=== PATIENT | male | born 1985 | race Caucasian/White ===

== ENCOUNTER 2024-03-31 08:27 | Outpatient (CLI) | payer BC | END 2024-03-31 08:28 | disposition home or self-care (01) | LOC: RAD 08:27 | PROVIDERS: ATTEND Internal Medicine Critical Care Medicine | DX: R06.00 Dyspnea, unspecified (principal) | CPT/HCPCS: 71046 ==

== ENCOUNTER 2025-09-12 14:13 | Outpatient (CLI) | payer BC | END 2025-09-12 14:14 | disposition home or self-care (01) | LOC: SCSRAD 14:13 | PROVIDERS: ATTEND Physician Assistant | DX: M25.532 Pain in left wrist (principal); S62.102A Fracture of unspecified carpal bone, left wrist, initial encounter for closed fracture ==